=== PATIENT | male | born 1995 | race African-American/Black ===

== ENCOUNTER 2019-08-25 08:34 | Emergency (ER) | payer SELFPAY, OTHER ==
--- NOTE | 2019-08-25 09:36 | RAD ---
CHEST 1 VIEW PORTABLE: Date: 08/25/2019 HISTORY: High fever and weakness. FINDINGS: Monitor leads overlie the chest. Heart size is normal. Mild vascular congestion with some questionabl e increased markings, nonspecific, in the perihilar regions. No pleural effusion. IMPRESSION: Questionable mild nonspecific increased markings in the perihilar regions. No confluent pneumonia, pl eural effusion, or cardiomegaly. POS: RRE
[2019-08-25 18:46] LABS: SARS-CoV-2 MS2 Positive; SARS-CoV-2 N Gene Negative; SARS-CoV-2 S Gene Negative; SARS-CoV-2 orf1ab Negative
== END 2019-08-25 10:51 | disposition home or self-care (01) ==
LOC: ERS 08:34
DX: R50.9 Fever, unspecified (principal); R11.2 Nausea with vomiting, unspecified; Z20.828 Contact with and (suspected) exposure to other viral communicable diseases; F17.210 Nicotine dependence, cigarettes, uncomplicated
CPT/HCPCS: 71045; 87635; U0003